=== PATIENT | male | born 1995 | race Caucasian/White ===

== ENCOUNTER → 2021-05-09 | Day surgery (SDC) | payer OTHER ==
[2021-05-07 16:35] VITALS: BMI 19.8
[~2021-05-09] MED LIST: BUPIVACAINE HCL/EPINEPHRINE/PF 30 ML VIAL IJ ONE; DEXAMETHASONE SOD PHOSPHATE 4 MG/1 ML VIAL ONE; ONDANSETRON 4 MG/2 ML VIAL ONE; PROPOFOL 20 ML ONE; SUCCINYLCHOLINE CHLORIDE 200 MG/10 ML SYRINGE ONE; VANCOMYCIN 1,000 MG VIAL (RESTRICTED TO ID ONLY) ONE; ceFAZolin SODIUM 1 GM VIAL ONE; fentaNYL CITRATE 250 MCG/5 ML VIAL ONE
[2021-05-09 06:42] VITALS: BP 107/54; PULSE 51; TEMP 97.5
== END | disposition home or self-care (01) ==
LOC: FASU 06:14
PROVIDERS: ATTEND Orthopaedic Surgery
PROC: 0MRP47Z Replacement of Left Knee Bursa and Ligament with Autologous Tissue Substitute, Percutaneous Endoscopic Approach (ICD-10-PCS; principal; 2021-05-09)
DX: Z53.8 Procedure and treatment not carried out for other reasons (principal); S83.522A Sprain of posterior cruciate ligament of left knee, initial encounter; X58.XXXA Exposure to other specified factors, initial encounter; Y93.9 Activity, unspecified; Y92.9 Unspecified place or not applicable

== ENCOUNTER 2021-05-16 06:49 | Day surgery (SDC) | payer OTHER ==
[2021-05-16 07:26] VITALS: BMI 19.8
[2021-05-16] MEDS ORDERED: EPINEPHrine 1:1,000 1,000 MCG/ML ML ONE (07:26)
[2021-05-16] MEDS ORDERED: VANCOMYCIN 1,000 MG VIAL (RESTRICTED TO ID ONLY) ONE ×2 (07:26→11:51)
[2021-05-16] MEDS ORDERED: BUPIVACAINE HCL/EPINEPHRINE/PF 30 ML VIAL IJ ONE ×2 (07:26→12:27)
[2021-05-16] MEDS ORDERED: MIDAZOLAM HCL 2 MG/2 ML SINGLE DOSE VIAL ONE (07:58)
[2021-05-16] MEDS ORDERED: BUPIVACAINE LIPOSOME/PF (EXPAREL) 266 MG/20 ML VIAL ONE (07:58)
[2021-05-16] MEDS ORDERED: SODIUM CHLORIDE 0.9% P/F 10 ML VIAL IJ ONE (07:59)
[2021-05-16] MEDS ORDERED: oxyCODONE HCL 5 MG TABLET PO PRN (14:04)
[2021-05-16] MEDS ORDERED: ACETAMINOPHEN 500 MG TABLET (FP) PO ONE (14:04)
[2021-05-16] MEDS ORDERED: ONDANSETRON 4 MG/2 ML VIAL IVPUSH PRN (14:04)
[2021-05-16] MEDS ORDERED: LACTATED RINGERS SOLUTION 1,000 ML IV SCH (14:15)
[2021-05-16] MEDS ORDERED: PROMETHAZINE HCL 25 MG/1 ML VIAL IVPUSH ONE ×2 (14:20→14:30)
[2021-05-16] MEDS ORDERED: PROMETHAZINE HCL 25 MG/1 ML VIAL ONE (14:22)
[2021-05-16 15:20] VITALS: TEMP 97.7
[2021-05-16 15:33] VITALS: BP 121/62; PULSE 68
== END 2021-05-16 16:35 | disposition home or self-care (01) ==
LOC: FASU 06:49
PROVIDERS: ATTEND Orthopaedic Surgery
PROC: 0YQG0ZZ Repair Left Knee Region, Open Approach (ICD-10-PCS; 2021-05-16)
PROC: 0SBD4ZZ Excision of Left Knee Joint, Percutaneous Endoscopic Approach (ICD-10-PCS; principal; 2021-05-16 10:12)
PROC: 0MRP47Z Replacement of Left Knee Bursa and Ligament with Autologous Tissue Substitute, Percutaneous Endoscopic Approach (ICD-10-PCS; 2021-05-16 10:12)
DX: S83.242A Other tear of medial meniscus, current injury, left knee, initial encounter (principal); S83.522A Sprain of posterior cruciate ligament of left knee, initial encounter; S83.422A Sprain of lateral collateral ligament of left knee, initial encounter; X58.XXXA Exposure to other specified factors, initial encounter; Y93.9 Activity, unspecified; Y92.9 Unspecified place or not applicable
CPT/HCPCS: 27405; 27427; 27428; 29881; 29889; C1713; 94760; 97116-GP